=== PATIENT | male | born 1985 | race Caucasian/White ===

== ENCOUNTER 2016-08-10 22:03 | Emergency (ER) | payer MEDICAID | END 2016-08-10 23:22 | disposition home or self-care (01) | LOC: D.ER 22:03 | DX: J44.1 Chronic obstructive pulmonary disease with (acute) exacerbation (principal); F32.9 Major depressive disorder, single episode, unspecified; I10 Essential (primary) hypertension ==

== ENCOUNTER 2016-09-13 18:54 | Emergency (ER) | payer MEDICAID | END 2016-09-13 20:45 | disposition home or self-care (01) | LOC: D.ER 18:54 | DX: J45.901 Unspecified asthma with (acute) exacerbation (principal); I10 Essential (primary) hypertension ==

== ENCOUNTER 2016-10-09 05:28 | Emergency (ER) | payer MEDICAID | END 2016-10-09 06:20 | disposition home or self-care (01) | LOC: D.ER 05:28 | DX: J45.901 Unspecified asthma with (acute) exacerbation (principal); R06.00 Dyspnea, unspecified; F17.200 Nicotine dependence, unspecified, uncomplicated; F32.9 Major depressive disorder, single episode, unspecified; I10 Essential (primary) hypertension ==